=== PATIENT | female | born 2000 | race Caucasian/White ===

== ENCOUNTER 2019-02-19 15:55 | Emergency (ER) | payer OTHER ==
[~2019-02-19] VITALS: Ht 167.6 cm; Wt 78.9 kg
[2019-02-19 16:44] LABS: BILIRUBIN,URINE NEGATIVE (NEGATIVE); CLARITY,URINE SL CLOUDY (CLEAR); COLOR,URINE YELLOW (YELLOW); KETONES,URINE NEGATIVE (NEGATIVE); LEUKOCYTE ESTERASE ,URINE NEGATIVE (NEGATIVE); NITRITE,URINE NEGATIVE (NEGATIVE); PROTEIN,URINE DIPSTICK TRACE (NEGATIVE); URINE UROBILINOGEN 0.2 mg/dL (0.2 - 1)
[2019-02-19 16:56] LABS: BACTERIA,URINE MODERATE /HPF; CALCIUM OXALATE CRYSTALS,UR MANY (FEW); EPITHELIAL CELLS,URINE FEW /LPF
[2019-02-19] MEDS ORDERED: KETOROLAC TROMETHAMINE 30 MG/ML VIAL IV STA (17:26)
[2019-02-19] MEDS ORDERED: SODIUM CHLORIDE 0.9% 1000ML 1,000 ML IV ONE (17:30)
[2019-02-19 18:08] LABS: BASOPHILS % 0.4 % (0.0-1.0); EOSINOPHILS # (AUTO) 0.1 (0.0-0.4); EOSINOPHILS % 2.2 % (0.0-6.0); HEMATOCRIT 41.7 % (34.2-44.1); HEMOGLOBIN 14.4 g/dL (12.0-16.0); LYMPHOCYTES # (AUTO) 1.6 (1.0-3.2); LYMPHOCYTES % 31.6 % (18.0-39.1); MEAN CORPUSCULAR HEMOGLOBIN 29.6 pg (28-32); MEAN CORPUSCULAR HGB CONC 34.5 g/dL (31-35); MEAN CORPUSCULAR VOLUME 85.8 fL (81-99); MONOCYTES # (AUTO) 0.8 (0.2-0.8); MONOCYTES % 14.9 % (4.4-11.3); NEUTROPHILS # (AUTO) 2.6 (2.1-6.9); NEUTROPHILS % 50.7 % (38.7-80.0); PLATELET COUNT 306 x10e3/uL (140-360); RED BLOOD COUNT 4.86 x10e6/uL (3.6-5.1); RED CELL DISTRIBUTION WIDTH 12.5 % (11.7-14.4)
[2019-02-19 18:18] LABS: ANION GAP 13.2 mmol/L (8-16); BLOOD UREA NITROGEN 15 mg/dL (7-26); BUN/CREATININE RATIO 20 (6-25); CALCIUM 8.9 mg/dL (8.4-10.2); CARBON DIOXIDE 19 mmol/L (22-29); CHLORIDE 106 mmol/L (98-107); CREATININE, SERUM 0.74 mg/dL (0.57-1.11); EST GLOMERULAR FILTRATION RATE > 60 ML/MIN (60-); GLUCOSE 89 mg/dL (74-118); POTASSIUM 3.2 mmol/L (3.5-5.1); SODIUM 135 mmol/L (136-145)
[2019-02-19] MEDS ORDERED: POTASSIUM CHLORIDE 20 MEQ TAB CR PO ONE (18:45)
[2019-02-19 19:37] VITALS: BP 135/78
== END 2019-02-19 19:40 | disposition home or self-care (01) ==
LOC: ER 15:55
DX: R10.9 Unspecified abdominal pain (principal); R11.2 Nausea with vomiting, unspecified; R19.7 Diarrhea, unspecified; E86.0 Dehydration
CPT/HCPCS: 36415; 80048; 81001; 81025; 85025; 99284; J1885; J7030

== ENCOUNTER 2019-02-21 17:41 | Inpatient (IN) | payer OTHER ==
[~2019-02-21] VITALS: Ht 170.2 cm; Wt 86.6 kg
--- OUTSIDE RECORDS SUMMARY | 2019-02-21 17:43 | XMS REPORT ---
Author Author [facility] Address Unknown Phone Unavailable Care Team Providers Care [employer] Professor Name Role Phone Unavailable Unavailable Payers Payer Name Policy Type Policy Number Effective Date Expiration Date Problems This patient has no known problems. Allergies, Adverse Reactions, Alerts Allergy Name Allergy Type Status Severity Reaction(s) Onset Date Inactive Date Treating Clinician Comments No Known Allergies DA Active U 2017-11-14 00:00:00 Medications This patient has no known medications. Results Test Description Test Time Test Comments Text Results Atomic Results Result Comments HGB HCT 2018-10-13 07:25:00 HEMOGLOBIN (test code=HGB) 9.2 g/dL 10.7-13.9 HEMATOCRIT (test code=HCT) 30.3 % 32.1-42.1 AG HEPATITIS B [id number] 19:36:00* Test Item Value Reference Range Comments AG HEPATITIS B SURFACE (test code=HBSAG) NONREACTIVE NONREACTIVE AB HEPATITIS C [id number] 19:36:00* Test Item Value Reference Range Comments AB HEPATITIS C (test code=HCVAB) NONREACTIVE NONREACTIVE SIGNAL TO CUTOFF (test code=CUTOFF) 0.06 <0.80 AB [id number] 19:36:00* Test Item Value Reference Range Comments AB TREPONEMA (test code=TREPAB) NONREACTIVE NONREACTIVE AG HEPATITIS B [id number] 19:20:00* Test Item Value Reference Range Comments AG HEPATITIS B SURFACE (test code=HBSAG) NONREACTIVE NONREACTIVE AB HEPATITIS C [id number] 19:20:00* Test Item Value Reference Range Comments AB HEPATITIS C (test code=HCVAB) NONREACTIVE SIGNAL TO CUTOFF (test code=CUTOFF) <0.80 AB [id number] 19:20:00* Test Item Value Reference Range Comments AB TREPONEMA (test code=TREPAB) NONREACTIVE NONREACTIVE CBC W/AUTO [id number] 18:36:00* Test Item Value Reference Range Comments WHITE BLOOD CELL (test code=WBC) 7.8 K/mm3 6.6-12.1 RED BLOOD CELL (test code=RBC) 3.98 M/mm3 3.45-5.01 HEMOGLOBIN (test code=HGB) 11.4 g/dL 10.7-13.9 HEMATOCRIT (test code=HCT) 36.1 % 32.1-42.1 MEAN CELL VOLUME (test code=MCV) 91 fL 84.1-94.8 MEAN CELL HGB (test code=MCH) 28.6 pg 27-35 MEAN CELL HGB CONCETRATION (test code=MCHC) 31.6 gm/dL 32.2-34.1 RED CELL DISTRIBUTION WIDTH (test code=RDW) 19.0 % 12.4-16.5 PLATELET COUNT (test code=PLT) 290 K/mm3 133-385 IMMATURE PLATELET FRACTION (test code=IPF) 0.0 % 0.0-10.8 MEAN PLATELET VOLUME (test code=MPV) 9.9 fl 9.1-12.7 NEUTROPHIL % (test code=NT%) 69.9 % 56.5-79.4 LYMPHOCYTE % (test code=LY%) 20.2 % 14.3-34.3 MONOCYTE % (test code=MO%) 8.3 % 5.1-10.4 EOSINOPHIL % (test code=EO%) 0.5 % 0.1-3.0 BASOPHIL % (test code=BA%) 0.3 % 0.1-1.0 NEUTROPHIL # (test code=NT#) 5.5 K/mm3 LYMPHOCYTE # (test code=LY#) 1.6 K/mm3 MONOCYTE # (test code=MO#) 0.7 K/mm3 EOSINOPHIL # (test code=EO#) 0.04 K/mm3 BASOPHIL # (test code=BA#) 0.0 K/mm3 RBC MORPHOLOGY REQUIRED (test code=RBCM) NORMAL NORMAL PLATELET MORPHOLOGY REQUIRED (test code=PLTMR) NORMAL NORMAL
[2019-02-21] MEDS ORDERED: MORPHINE SULFATE INJ 4 MG/ML INJ 1ML IV ONE ×2 (17:54→20:30)
[2019-02-21] MEDS ORDERED: PANTOPRAZOLE 40 MG 10ML VIAL IV ONE (17:54)
[2019-02-21] MEDS ORDERED: ONDANSETRON HCL INJ 2MG/ML 2ML 2 MG/ML VIAL IV ONE ×2 (17:54→19:49)
[2019-02-21] MEDS ORDERED: SODIUM CHLORIDE 0.9% 1000ML 1,000 ML IV STA (17:54)
--- NOTE | 2019-02-21 18:00 | NUR ---
REC'D PT IN RM 7 WITH C/O ABD PAIN. DR. SIERRA AT BEDSIDE
[2019-02-21 18:15] LABS: BILIRUBIN,URINE NEGATIVE (NEGATIVE); CLARITY,URINE SL CLOUDY (CLEAR); COLOR,URINE YELLOW (YELLOW); KETONES,URINE NEGATIVE (NEGATIVE); LEUKOCYTE ESTERASE ,URINE NEGATIVE (NEGATIVE); NITRITE,URINE NEGATIVE (NEGATIVE); PROTEIN,URINE DIPSTICK NEGATIVE (NEGATIVE); URINE UROBILINOGEN 0.2 mg/dL (0.2 - 1)
[2019-02-21 18:16] LABS: PREGNANCY TEST, URINE NEGATIVE (NEGATIVE)
[2019-02-21 18:28] LABS: BASOPHILS % 0.8 % (0.0-1.0); EOSINOPHILS % 0.8 % (0.0-6.0); HEMATOCRIT 34.8 % (34.2-44.1); HEMOGLOBIN 12.2 g/dL (12.0-16.0); LYMPHOCYTES % 52.3 % (18.0-39.1); MEAN CORPUSCULAR HEMOGLOBIN 29.7 pg (28-32); MEAN CORPUSCULAR HGB CONC 35.1 g/dL (31-35); MEAN CORPUSCULAR VOLUME 84.7 fL (81-99); MONOCYTES # (AUTO) 0.5 (0.2-0.8); MONOCYTES % 11.9 % (4.4-11.3); NEUTROPHILS # (AUTO) 1.3 (2.1-6.9); NEUTROPHILS % 33.9 % (38.7-80.0); PLATELET COUNT 253 x10e3/uL (140-360); RED BLOOD COUNT 4.11 x10e6/uL (3.6-5.1); RED CELL DISTRIBUTION WIDTH 12.7 % (11.7-14.4)
[2019-02-21 18:30] LABS: BACTERIA,URINE MODERATE /HPF; EPITHELIAL CELLS,URINE MODERATE /LPF
[2019-02-21 18:40] LABS: ALANINE AMINOTRANSFERASE 26 IU/L (0-55); ALBUMIN 3.9 g/dL (3.5-5.0); ALBUMIN/GLOBULIN RATIO 1.3 (0.8-2.0); ALKALINE PHOSPHATASE 80 IU/L (40-150); AMYLASE 45 U/L (25-125); ANION GAP 12.9 mmol/L (8-16); BLOOD UREA NITROGEN 10 mg/dL (7-26); BUN/CREATININE RATIO 15 (6-25); CALCIUM 8.8 mg/dL (8.4-10.2); CARBON DIOXIDE 21 mmol/L (22-29); CHLORIDE 108 mmol/L (98-107); CREATININE, SERUM 0.66 mg/dL (0.57-1.11); EST GLOMERULAR FILTRATION RATE > 60 ML/MIN (60-); GLUCOSE 82 mg/dL (74-118); LIPASE 18 U/L (8-78); SODIUM 139 mmol/L (136-145)
[2019-02-21 18:41] LABS: POTASSIUM 2.9 mmol/L (3.5-5.1)
[2019-02-21] MEDS ORDERED: IOPAMIDOL 370 MG/ML 200 ML INFUS..BTL INJ ONE (18:43)
[2019-02-21] MEDS ORDERED: SODIUM CHLORIDE 0.9% 50ML 50 ML ONE (18:43)
[2019-02-21] MEDS ORDERED: POTASSIUM CHLORIDE 10MEQ EA PO ONE (18:45)
--- NOTE | 2019-02-21 19:13 | NUR ---
meds given and pt has tolerated well.
--- NOTE | 2019-02-21 20:17 | Diagnostic Imaging Report ---
EXAM: CT Abdomen and Pelvis WITH contrast INDICATION: ^r/o appy/ denny ^[id number] ^[id number] COMPARISON: None. TECHNIQUE: Abdomen and pelvis were scanned utilizing a multidetector helical scanner from the lung base to the pubic symphysis after administration of IV contrast. Coronal and sagittal reformations were obtained. Routine protocol was performed. Scan was performed when during portal venous phase. Dose modulation, iterative reconstruction, and/or weight based adjustment of the mA/kV was utilized to reduce the radiation dose to as low as reasonably achievable. IV CONTRAST: 100 mL of Isovue-370 ORAL CONTRAST: None RADIATION DOSE: Total DLP: 417.70 mGy*cm Estimated effective dose: (DLP x 0.015 x size factor) mSv COMPLICATIONS: None FINDINGS: LINES and TUBES: None. LOWER THORAX: Lung bases are clear with mild dependent lower lobe atelectasis. Heart size normal. HEPATOBILIARY: No focal hepatic lesions. No biliary ductal dilation. GALLBLADDER: No radio-opaque stones or sludge. No wall thickening. SPLEEN: No splenomegaly. PANCREAS: No focal masses or ductal dilatation. ADRENALS: No adrenal nodules KIDNEYS/URETERS: Kidneys enhance symmetrically. No hydronephrosis. No cystic or solid mass lesions. No stones. GI TRACT: There is diffuse distention of the stomach and small bowel containing fluid. The colon is markedly dilated mainly with air. There is marked distention of the cecum measuring 10.2 cm diameter. No specific etiology for this diffuse bowel distention is identified. Appendix is normal. PELVIC ORGANS/BLADDER: Urinary bladder unremarkable. The uterus is retroverted. LYMPH NODES: No dominant lymph node mass is seen in the abdomen, retroperitoneum or pelvis. There are mildly prominent lymph nodes in the mesentery, for example measuring 1.0 cm (image 42) and 0.8 cm (image 39), and 0.9 cm in the retroperitoneum (image 54) VESSELS: Abdominal aorta, IVC and portal system unremarkable. Celiac, SMA, NARCISO and renal arteries are patent. PERITONEUM / RETROPERITONEUM: No pneumoperitoneum or ascites. BONES: No acute or suspicious bony lesion. SOFT TISSUES: Superficial surrounding soft tissue unremarkable. IMPRESSION: 1. There is extensive dilatation of small bowel, mainly involving the ileum. There is also marked distention of the colon mainly containing air. The cecum is markedly dilated at more than 10 cm which may be a critical level. The stomach is distended with fluid as well. Findings suggests either profound ileus or obstruction with no transition point or specific etiology identified. There is no bowel wall thickening. 2. No pneumoperitoneum or ascites. 3. Moderate scattered lymphadenopathy in the mesentery and retroperitoneum suggests possibility of infectious or lymphoproliferative disorder. 4. The appendix is visualized in segments, containing air, with a normal appearance. Staff: Hanna Signed by: Dr. Karson Ferreira M.D. on 02/21/2019 8:14 PM
[2019-02-21] MEDS ORDERED: MORPHINE SULFATE 2 MG/ML SYR 1ML IV STA (20:24)
[2019-02-21] MEDS: SODIUM CHLORIDE 0.9% 250ML IRRIG IR SCH (21:00)
[2019-02-21] MEDS ORDERED: BENZOCAINE/TETRACAINE/BUTAMBEN AERO SPRAY 56 GM CAN TOP ONE (21:30)
[2019-02-21] MEDS ORDERED: POTASSIUM CHLORIDE 10MEQ/100ML 200 ML IV ONE (21:30)
--- NOTE | 2019-02-21 21:42 | NUR ---
P 2 ATTEMPTS TO INSERT NG TUBE; PT/FAMILY BOTH HAVE ADAMANTLY REFUSED. /CHARGE NURSE DONNA INFORMED
[2019-02-21] MEDS ORDERED: FENTANYL CITRATE/PF 100MCG/2 ML INJ IV ONE (22:00)
--- NOTE | 2019-02-21 22:04 | NUR ---
MEDICATED FOR ABD. PAIN WITH 50MG IV FENTANYL
--- NOTE | 2019-02-21 22:35 | NUR ---
14FR NGT TO THE LEFT NARE AND CONNECTED TO L.I.S.
[2019-02-21] MEDS ORDERED: DEXTROSE 5%/0.45% SOD CHL 1,000 ML IV ONE (23:15)
[2019-02-22] VITALS (10 sets, daily range): BP systolic 106–132; BP diastolic 52–77
[2019-02-22] MEDS: MORPHINE SULFATE INJ 4 MG/ML INJ 1ML IV PRN ×3 (00:27→09:05)
[2019-02-22] MEDS: ONDANSETRON HCL INJ 2MG/ML 2ML 2 MG/ML VIAL IV PRN ×3 (00:27→09:05)
[2019-02-22] MEDS: SODIUM CHLORIDE 0.9% 250ML IRRIG IR SCH ×4 (01:00→09:00)
--- NOTE | 2019-02-22 03:33 | NUR ---
PT IS TRANSFERRED FROM ER .PT IS AOX3 PT HAS NG TUBE .RESPIRATIONS ARE EVEN AND UNLABORED .ABD DISTENDED C/O PAIN .FAMILY AT THE BEDSIDE .CALL LIGHT WITH IN REACH .CONTINUE TO MONITOR
[2019-02-22] MEDS ORDERED: DEXTROSE 5%/0.45% SOD CHL 1,000 ML IV ONE (04:00)
[2019-02-22 06:09] LABS: BASOPHILS % 0.2 % (0.0-1.0); HEMATOCRIT 34.3 % (34.2-44.1); HEMOGLOBIN 11.6 g/dL (12.0-16.0); LYMPHOCYTES # (AUTO) 1.2 (1.0-3.2); LYMPHOCYTES % 20.8 % (18.0-39.1); MEAN CORPUSCULAR HEMOGLOBIN 29.2 pg (28-32); MEAN CORPUSCULAR HGB CONC 33.8 g/dL (31-35); MEAN CORPUSCULAR VOLUME 86.4 fL (81-99); MONOCYTES # (AUTO) 0.4 (0.2-0.8); NEUTROPHILS % 71.8 % (38.7-80.0); PLATELET COUNT 262 x10e3/uL (140-360); RED BLOOD COUNT 3.97 x10e6/uL (3.6-5.1); RED CELL DISTRIBUTION WIDTH 12.7 % (11.7-14.4)
--- NOTE | 2019-02-22 06:27 | NUR ---
PT C/O PAIN DURING THE NIGHT .GIVEN ORDERED MORPHINE .GIVEN 40 MEQ IV POTASSIUM .PT IS NPO .FAMILY AT THE BEDSIDE .CALL LIGHT WITH IN REACH .CONTINUE TO MONITOR
[2019-02-22 06:31] LABS: ANION GAP 14.7 mmol/L (8-16); BLOOD UREA NITROGEN 6 mg/dL (7-26); BUN/CREATININE RATIO 8 (6-25); CALCIUM 8.1 mg/dL (8.4-10.2); CARBON DIOXIDE 21 mmol/L (22-29); CHLORIDE 108 mmol/L (98-107); CREATININE, SERUM 0.71 mg/dL (0.57-1.11); EST GLOMERULAR FILTRATION RATE > 60 ML/MIN (60-); GLUCOSE 117 mg/dL (74-118); SODIUM 141 mmol/L (136-145)
[2019-02-22 06:38] LABS: POTASSIUM 2.7 mmol/L (3.5-5.1)
[2019-02-22] MEDS ORDERED: POTASSIUM CHLORIDE 20MEQ/100ML 400 ML IV ONE (07:00)
--- NOTE | 2019-02-22 07:04 | NUR ---
REPORT GIVEN TO THE ONCOMING NURSE
[2019-02-22] MEDS: DEXTROSE 5%/0.45% SOD CHL 1,000 ML IV SCH ×3 (07:15→20:35)
--- NOTE | 2019-02-22 08:40 | NUR ---
LAB RESULTS OF MAGNESIUM AND IONIZED CALCIUM CALLED TO DR. BURNS- NO NEW ORDERS RECEIVED.
--- NOTE | 2019-02-22 09:48 | Diagnostic Imaging Report ---
Exam: KUB - 2 views Indication: Ileus Comparison: CT abdomen and pelvis of 02/21/2019 Findings: NG tube projects below the diaphragm with side port in the stomach and tip curling back proximally to the gastroesophageal junction. Again seen is gaseous distention of the entire colon measuring up to 11 cm at the cecum. Multiple air-fluid levels are seen on the upright projection. No free air. No pneumatosis. Partially visualized lung bases appear clear. Impression: Interval placement of NG tube which courses into the stomach then curls back upward with tip at the gastroesophageal junction. Recommend withdrawing NG tube and then re-advancing for improved positioning. Unchanged gaseous distention of the colon measuring up to 11 cm at the cecum. Findings are compatible with ileus or obstruction. Signed by: Raji Gil MD on 02/22/2019 9:45 AM
--- NOTE | 2019-02-22 11:33 | NUR ---
2 VIEW ABD RESULTS GIVEN TO BOTH DR. PAIGE AND DR. BURNS AROUND 1113. PER DR. PAIGE- REMOVE NG TUBE AND PATIENT IS TO REMAIN NPO. NG TUBE REMOVED AT 1130- PATIENT IS AWARE SHE IS TO REMAIN NPO. IV FLUIDS AND IV POTASSIUM IS INFUSING.
--- NOTE | 2019-02-22 12:21 | Consultation ---
DATE OF CONSULTATION: 02/22/2019 HISTORY OF PRESENT ILLNESS: The patient is a 18-year-old female, who presented to the emergency room with complaints of abdominal pain with nausea, vomiting, and diarrhea. The patient says her symptoms started 6 days ago and then got worse for a while, but now are better. She came to the emergency room where she was evaluated, CT abdomen and pelvis which revealed findings suggestive of an ileus with principal finding being dilated cecum. The patient says, however, she is passing flatus, now feels much better. She has not had any definite fever. PAST MEDICAL HISTORY: Unremarkable. She has no chronic medical problems. PAST SURGICAL HISTORY: Only previous surgery, section 4 months ago. ALLERGIES: NO KNOWN ALLERGIES. MEDICATIONS: There were no home medications. FAMILY HISTORY: Noncontributory. SOCIAL HISTORY: The patient does not smoke cigarettes or drink alcohol. REVIEW OF SYSTEMS: As stated above, otherwise was negative. PHYSICAL EXAMINATION: GENERAL: The patient is awake and alert. VITAL SIGNS: She is afebrile. Heart rate is around 100. HEENT: Sclerae are not icteric. NECK: No masses. LUNGS: Equal breath sounds are clear bilaterally. CARDIAC: Regular rate and rhythm with no murmur. ABDOMEN: Soft. There is slight distention. There is no mass. There was no significant tenderness. There are no signs of peritonitis. No organomegaly. EXTREMITIES: No edema. Pulses are palpable. NEUROLOGIC: Intact. LABORATORY TESTS: White blood cell count on arrival was 3.9 with a lymphocytosis of 52.3, hemoglobin and hematocrit are normal. Chemistries reveal only mild hypokalemia, otherwise were normal. CT of the abdomen revealed dilated bowel suggestive of ileus with also some prominent lymph nodes. ASSESSMENT: A 18-year-old female with symptoms most suggestive of viral gastroenteritis. There is no sign of mechanical obstruction. I think the nasogastric tube can be removed. PLAN: Repeat abdominal x-ray and if it is improved, she can start on liquid diet. There are no signs of acute surgical abdomen. No findings that would warrant surgical intervention. Thank you for asking me to see Ms. Jefferson. MD LIOR Frazier/JOHANNY /[id number]
--- NOTE | 2019-02-22 13:37 | History and Physical ---
REASON FOR ADMISSION: A 18-year-old female with history of abdominal pain. HISTORY OF PRESENT ILLNESS: Ms. Alfred Jefferson is a 18-year-old female, who was in usual state of health until about 3 days ago. The patient had her feast and patient apparently developed some abdominal pain, came into the emergency room on Tuesday and was diagnosed with gastroenteritis at home with GI soft diet. The patient also was asked to take clear liquid diet, but this last evening the patient's abdominal pain did get worse. The patient distention of the belly was noted. The patient also had a pain, which is 10/10 in intensity, came to the emergency room, was found to have a CT scan finding of increased cecal diameter and also small bowel obstruction. The patient has been admitted to the hospital for the same. PAST MEDICAL HISTORY: Noncontributory. PAST SURGICAL HISTORY: History of ACL repair, history of C section recently in October for a child, otherwise noncontributory and wrist surgery. SOCIAL HISTORY: No EtOH. No IV drug abuse. REVIEW OF SYSTEMS: Negative for chest pain. No shortness of breath. Positive for nausea. No vomiting. No diarrhea. No constipation. No rectal bleeding. No hematochezia. No hematemesis. PHYSICAL EXAMINATION: VITAL SIGNS: Temperature 97.6, pulse of 104, respirations of 20, blood pressure is 106/59, pulse oximetry of 97%. HEENT: Normocephalic, atraumatic. Pupils are reactive to light and accommodation. The patient has an NG tube. CVS: S1 and S2 normal. Regular rate and rhythm. ABDOMEN: Tender in the right upper and lower quadrant extremities. EXTREMITIES: No clubbing, no cyanosis, no edema. IMAGING STUDIES: Abdominal CT shows an extensive dilatation of small bowel mainly involving ileum also colonic distention. Cecum is dilated up to 10 cm. No pneumoperitoneum or ascites. Appendix is visualized with normal appearance. LABORATORY VALUES: White count was 3.86, hemoglobin of 12.2, neutrophil of 33.9, elevated lymphocyte count. Chemistry shows sodium of 139, potassium of 2.9, BUN of 10, creatinine 0.66, and repeat potassium is 2.7. ASSESSMENT: Small-bowel obstruction. The patient is on NG tube seen by Dr. Boyer already. NG tube has been ordered to be out. The patient is feeling better, but at this time we will probably go hold on feeding her. IV fluids at 125 mL an hour, potassium replacement to be done again. We will continue to monitor the patient. Fluid resuscitation and we will hold off on feeding the patient until the KUB is back. Further recommendation per clinical course. We will continue to monitor the patient. Diagnosis of small bowel obstruction. MD CANDICE Little/MODL /[id number]
--- NOTE | 2019-02-22 14:23 | NUR ---
THIRD IV POTASSIUM INFUSING.
--- NOTE | 2019-02-22 19:09 | NUR ---
PATIENT IS ALERT AND IN STABLE CONDITION WITH NO S/S OF RESPIRATORY DISTRESS. PATIENT DENIES PAIN. IV FLUID AND IV POTASSIUM INFUSING. MOTHER PRESENT IN ROOM. CALL LIGHT IS WITHIN REACH OF PATIENT, PATIENT INSTRUCTED TO CALL FOR ASSISTANCE NEEDED. REPORT GIVEN TO ONCOMING NURSE.
[2019-02-22] MEDS ORDERED: KETOROLAC TROMETHAMINE 30 MG/ML VIAL IV PRN (19:30)
--- NOTE | 2019-02-22 20:30 | NUR ---
PATIENT IS AOX4, NO SIGNS OF DISTRESS NOTED. FAMILY MEMBER AT BEDSIDE AND PATIENT HAD PREVIOUSLY COMPLAINED OF HEADACHE AND WAS MEDICATED ORDERED. IV FLUIDS ARE RUNNING AT ORDERED RATE AND PATIENT DENIES NAUSEA. BED IS IN LOWEST POSITION, SIDE RAILS ARE UP, CALL LIGHT WITHIN REACH, WILL CONTINUE TO MONITOR.
[2019-02-23] MEDS: DEXTROSE 5%/0.45% SOD CHL 1,000 ML IV SCH ×4 (00:51→13:57)
[2019-02-23 04:00] VITALS: BP 106/54
[2019-02-23 06:53] LABS: BASOPHILS % 0.5 % (0.0-1.0); EOSINOPHILS # (AUTO) 0.1 (0.0-0.4); EOSINOPHILS % 2.7 % (0.0-6.0); HEMOGLOBIN 10.8 g/dL (12.0-16.0); LYMPHOCYTES # (AUTO) 2.3 (1.0-3.2); LYMPHOCYTES % 62.6 % (18.0-39.1); MEAN CORPUSCULAR HEMOGLOBIN 29.3 pg (28-32); MEAN CORPUSCULAR HGB CONC 33.8 g/dL (31-35); MEAN CORPUSCULAR VOLUME 86.7 fL (81-99); MONOCYTES # (AUTO) 0.2 (0.2-0.8); MONOCYTES % 5.9 % (4.4-11.3); NEUTROPHILS # (AUTO) 1.1 (2.1-6.9); PLATELET COUNT 247 x10e3/uL (140-360); RED BLOOD COUNT 3.69 x10e6/uL (3.6-5.1); RED CELL DISTRIBUTION WIDTH 12.7 % (11.7-14.4)
[2019-02-23 07:11] LABS: ALANINE AMINOTRANSFERASE 27 IU/L (0-55); ALBUMIN 3.1 g/dL (3.5-5.0); ALBUMIN/GLOBULIN RATIO 1.2 (0.8-2.0); ALKALINE PHOSPHATASE 71 IU/L (40-150); BLOOD UREA NITROGEN 7 mg/dL (7-26); BUN/CREATININE RATIO 11 (6-25); CALCIUM 8.1 mg/dL (8.4-10.2); CARBON DIOXIDE 24 mmol/L (22-29); CHLORIDE 108 mmol/L (98-107); CREATININE, SERUM 0.62 mg/dL (0.57-1.11); EST GLOMERULAR FILTRATION RATE > 60 ML/MIN (60-); GLUCOSE 85 mg/dL (74-118); MAGNESIUM 1.4 MG/DL (1.3-2.1); SODIUM 141 mmol/L (136-145)
[2019-02-23 08:00] VITALS: BP 105/62
[2019-02-23 08:03] LABS: LYMPHOCYTES % (MANUAL) 65 % (19-48); MONOCYTES % (MANUAL) 5 % (3.4-9.0); NEUTROPHILS % (MANUAL) 27 % (40-74)
[2019-02-23 08:04] LABS: BURR CELLS SLIGHT; PLATELET ESTIMATE ADEQUATE; PLATELET MORPHOLOGY COMMENT FEW LARGE; POIKILOCYTOSIS SLIGHT; RBC MORPHOLOGY COMMENT ABNORMAL; TEAR DROP CELLS FEW
--- NOTE | 2019-02-23 08:42 | Progress Note ---
DATE: SUBJECTIVE: The patient is a 18-year-old female with small bowel obstruction. The patient had an NG tube all the way until today. This morning, the patient's NG tube was discontinued by Dr. Boyer, feeling better. Clear liquid diet has been incorporated. NG tube was removed yesterday in the morning. The patient has been feeling better and has been on n.p.o. Currently, the patient has been started on clear liquid diet. No chest pain. No shortness of breath. Feeling better. Abdominal pain is still present, but continues to get better. OBJECTIVE: Vital signs: Temperature is 97.1, pulse of 63, respirations of 20, blood pressure is 106/54, pulse oximetry of 96%. HEENT: Normocephalic and atraumatic. Pupils are reactive to light and accommodation. CVS: S1 and S2 normal. Regular rhythm. ABDOMEN: Tender in the periumbilical area and also on the left lower quadrant area. EXTREMITIES: No clubbing, no cyanosis, no edema. LABORATORY VALUES: Today's white count of 3.74, hemoglobin of 10.8, hematocrit of 32.0, neutrophil count is 28, and lymphocyte count of 62.6. Chemistries are pending at this time. Awaiting for her potassium. ASSESSMENT: This is a 18-year-old female with, 1. Small-bowel obstruction status post NG tube removed. PLAN: 1. To increase her to clear liquid diet. 2. Hyperkalemia. We will recheck her potassium and continue replacing electrolytes as needed. The patient is progressing better. We will advance her diet to see if she tolerates diet today. Further recommendation per clinical course. We will continue to monitor the patient along with Dr. Boyer. Sabas Murcia MD ASJ/MODL /[id number]
[2019-02-23] MEDS ORDERED: POTASSIUM CHLORIDE 20 MEQ TAB CR PO SCH (09:00)
[2019-02-23] MEDS ORDERED: POTASSIUM CHLORIDE 20 MEQ TAB CR PO NR (09:30)
[2019-02-23] MEDS ORDERED: POTASSIUM CHLORIDE 20MEQ/100ML 200 ML IV ONE (10:00)
[2019-02-23 12:00] VITALS: BP 121/63
--- NOTE | 2019-02-23 12:10 | Diagnostic Imaging Report ---
Exam: KUB - 2 views Indication: Ileus Comparison: KUB of 02/22/2019, CT abdomen and pelvis of 02/21/2019 Findings: Interval removal of enteric tube. There has been interval resolution of the previously seen gaseous distention of large bowel. Bowel gas pattern now appears nonobstructive. No free air. The osseous structures appear unremarkable. Partially visualized lung bases are clear. Impression: Interval resolution of gaseous distention of large bowel. Nonobstructive bowel gas pattern with no free air. Interval removal of enteric tube. Signed by: Raji Gil MD on 02/23/2019 12:07 PM
[2019-02-23 16:00] VITALS: BP 110/63
--- NOTE | 2019-02-23 18:20 | NUR ---
Pt discharged home at this time. Pt and family verbalized understanding of all discharge instructions. 0 s/s of acute distress noted. at time. of discharge.
== END 2019-02-23 18:15 | disposition home or self-care (01) | DRG 390 ==
LOC: ER 17:41 → ERHOLD 20:52 → MED/SURG3 23:36
PROVIDERS: ADMIT Family Medicine; ATTEND Family Medicine
PROC: 0D9670Z Drainage of Stomach with Drainage Device, Via Natural or Artificial Opening (ICD-10-PCS; principal; 2019-02-21)
DX: K56.609 Unspecified intestinal obstruction, unspecified as to partial versus complete obstruction (principal); E87.6 Hypokalemia; A08.4 Viral intestinal infection, unspecified
CPT/HCPCS: 36415; 74019; 74177; 80048; 80053; 81001; 81025; 82150; 83690; 83735; 85025; 87086; 99284; J1885; J2270; J2405; J3010; J3480; J7030; Q9967